=== PATIENT | female | born 1955 | race Caucasian/White ===

== ENCOUNTER 2019-10-16 16:23 | Outpatient (CLI) | payer BC, SELFPAY ==
--- NOTE | ~2019-10-16 | MM_ITS ---
EXAMINATION: MM screening chet BI w bhavana HISTORY: Screening TECHNIQUE: Craniocaudal and mediolateral oblique 3-D tomosynthesis images were obtained and synthetic 2-D images were generated. CAD analysis was submitted and interpreted. COMPARISON: Comparison to multiple prior studies sequentially, with oldest reviewed study dated 02/2013. BREAST PARENCHYMAL COMPOSITION: There are scattered areas of fibroglandular density. FINDINGS: There is no evidence of suspicious mass, calcification, or architectural distortion to sugg est malignancy in either breast. There has been no suspicious interval change. IMPRESSION: 1. No mammographic evidence of malignancy. 2. Recommend routine screening mammography in one year. BI-RADS Category 1: Negative Reviewed, dictated and finalized at location A.
== END 2019-10-16 16:24 | disposition home or self-care (01) ==
LOC: ANHIMG 16:25
PROVIDERS: PCP Internal Medicine; Visit Provider Internal Medicine
DX: Z12.31 Encounter for screening mammogram for malignant neoplasm of breast (principal)
CPT/HCPCS: 77063; 77067

== ENCOUNTER 2020-01-15 16:53 | Outpatient (CLI) | payer BC, SELFPAY ==
--- NOTE | ~2020-01-15 | XR_ITS ---
EXAMINATION: XR wrist RT min 3V DATE: 01/15/2020 17:20 INDICATION: Right wrist osteoarthritis and pain. TECHNIQUE: 4 views of right wrist were obtained. COMPARISON: Right hand radiographs 05/31/11 FINDINGS: Bone alignment is normal. No fracture. There is a well-corticated 2 mm bone fragment dorsal to the scaphoid on the oblique view. There is mild osteoarthritis of triscaphe joint and severe oste oarthritis of first carpometacarpal joint. There is mild osteoarthritis of first and fifth metacarpop halangeal joints. IMPRESSION: 1. Polyarticular osteoarthritis. Reviewed, dictated and finalized at location A. [employer]IC[employer]
--- NOTE | ~2020-01-15 | XR_ITS ---
EXAMINATION: XR wrist LT min 3V DATE: 01/15/2020 17:20 INDICATION: Left wrist osteoarthritis and pain. TECHNIQUE: 4 views of left wrist were obtained. COMPARISON: None. FINDINGS: Bone alignment is normal. No fracture. There is moderate osteoarthritis of first carpometac arpal joint. IMPRESSION: 1. Moderate osteoarthritis of first carpometacarpal joint. Reviewed, dictated and finalized at location A. [employer]
== END 2020-01-15 16:54 | disposition home or self-care (01) ==
PROVIDERS: PCP Internal Medicine; Visit Provider Plastic Surgery
DX: M19.031 Primary osteoarthritis, right wrist (principal); M19.032 Primary osteoarthritis, left wrist
CPT/HCPCS: 73110

== ENCOUNTER → 2020-04-07 13:04 | Outpatient (CLI) | payer BC, SELFPAY ==
--- NOTE | ~2020-04-07 | DEXA_ITS ---
Bone Density Report Name: Cecelia Bearden Age: 64 Sex: Female Ethnicity: White Date of : 1955 Indication: postmenopausal; screening for osteoporosis; hysterectomy; Referring Provider: LULY BREWER Study: Bone densitometry was performed. Exam Date: April 07, 2020 Accession number: [id number] Bone Density: Region BMD T-score Z-score Classification AP Spine (L1-L4) 1.200 1.4 3.1 Normal Femoral Neck (Left) 1.046 1.8 3.3 Normal Total Hip (Left) 1.214 2.2 3.4 Normal Femoral Neck (Right) 1.061 1.9 3.4 Normal Total Hip (Right) 1.261 2.6 3.8 Normal Total Hip Mean 1.238 2.4 3.6 Normal World Health Organization criteria for BMD impression classify patients as: Normal (T-score at or above -1.0), Osteopenia (T-score between -1.0 and -2.5), or Osteoporosis (T-score at or below -2.5). 10-year Fracture Risk: FRAX not reported because: All T-scores for Spine Total, Hip Total, Femoral Neck at or above -1.0 Previous Exams: Region Exam Age BMD T-score BMD Change BMD Change Date g/cm2 vs Baseline vs Previous AP Spine(L1-L4) 04/07/2020 64 1.200 1.4 -0.139* 0.020 12/28/2014 59 1.181 1.2 -0.159* -0.027* 12/21/2012 57 1.208 1.5 -0.131* -0.131* 01/01/2009 53 1.339 2.7 Total Hip(Left) 04/07/2020 64 1.214 2.2 -0.157* -0.043* 12/28/2014 59 1.257 2.6 -0.113* -0.098* 12/21/2012 57 1.355 3.4 -0.015 -0.015 01/01/2009 53 1.370 3.5 Total Hip(Right) 04/07/2020 64 1.261 2.6 -0.079* 0.009 12/28/2014 59 1.253 2.5 -0.087* -0.096* 12/21/2012 57 1.349 3.3 0.009 0.009 01/01/2009 53 1.340 3.3 *Denotes significance at 95% confidence level, LSC for AP Spine = 0.022 g/cm2, LSC for Total Hip = 0.027 g/cm2 Clinical Information Provided by Patient: Has used the following medications: Calcium, vit D included in Calcium, MTV Has the following medical conditions: Hysterectomy Patient maximum height was 64 Menopause Age: 54 No regular weight bearing exercise Does not regularly consume dairy products Drinks caffeinated beverages Onset of menses at age 13 Number of children 2 Impression: The patient has normal bone mass. The BMD for the Total Hip(Left) decreased, changing by -0.043 since the last DXA exam. Discussion: LOW RISK OF FRACTURE; BONE DE
== END ==
PROVIDERS: PCP Internal Medicine; Visit Provider Obstetrics & Gynecology Gynecology
DX: Z78.0 Asymptomatic menopausal state (principal)
CPT/HCPCS: 77080